=== PATIENT | female | born 1985 | race Caucasian/White ===

== ENCOUNTER 2016-05-27 13:58 | Emergency (ER) | payer OTHER ==
[~2016-05-27] VITALS: Ht 180.3 cm; Wt 122.5 kg
[~2016-05-27 13:58] MED LIST: NITR100C62 PO
[2016-05-27 14:36] VITALS: BP 148/93
[2016-05-27] MEDS ORDERED: IBUPROFEN 600 MG TABLET. PO ONE (15:30)
--- NOTE | 2016-05-27 16:07 | PHYS DOC ---
Past Medical History Past Medical History: No Pertinent History Past Surgical History: No Surgical History Additional Information: Nonsmoker Alcohol Use: Occasionally Drug Use: None Adult General Chief Complaint Chief Complaint: FEMALE UROGENTIAL PROBLEMS [facility] HPI Patient is a 30 year old female who presents with low abdominal cramping and right-sided low back pain for one week. She reports she has had some hematuria and a mild vaginal discharge with odor. She denies dysuria, urinary frequency, or fever. Patient was seen here 3 days ago for similar symptoms. She was diagnosed with a urinary tract infection and prescribed Macrobid. She states that her pain does not improve at all with the antibiotic. She reports having a Pap done 2 weeks ago, which seems to be just prior to the onset of her symptoms. She is sexually active in a stable, monogamous relationship. She has an IUD and therefore does not have menstrual cycles. She does not have a PCP. Review of Systems Review of Systems Constitutional: Denies fever or chills. [] GI: Denies \nausea, vomiting, bloody stools or diarrhea. Reports lower abdominal cramping. : Denies dysuria or urinary frequency. Reports hematuria and vaginal discharge. Musculoskeletal: Denies joint pain. Reports right-sided low back pain. Integument: Denies rash or skin lesions. [] Neurologic: Denies headache, focal weakness or sensory changes. [] Endocrine: Denies polyuria or polydipsia. [] All systems reviewed and negative unless otherwise stated in the HPI. Current Medications Current Medications Current Medications Medications (Trade) Dose Ordered Sig/[facility] Start Time Stop Time Status Last Admin Dose Admin Ibuprofen (Motrin) 600 mg 1X ONCE 05/27/16 15:30 05/27/16 15:32 DC 05/27/16 16:16 600 MG Allergies Allergies Allergies Coded Allergies Type Severity Reaction Last Updated Verified Penicillins Allergy Intermediate 08/01/13 Yes Physical Exam Physical Exam Constitutional: Well developed, well nourished, no acute distress, non-toxic appearance. [] HENT: Normocephalic, atraumatic, oropharynx moist. [] Eyes: PERRLA, EOMI, conjunctiva normal, no discharge. [] Neck: Normal range of motion, no tenderness, supple, no stridor. [] Cardiovascular: Heart rate regular rhythm, no murmur. [] Lungs & Thorax: Bilateral breath sounds clear to auscultation without wheezes, rales, or rhonchi. [] Abdomen: Bowel sounds normal, soft, suprapubic tenderness, no masses, no pulsatile masses. [] Female : ED RN business performance specialist present during exam. Normal external genitalia. There is mild white discharge within the vagina with scant amount of blood in the vaginal vault. IUD strings are visualized. There is no cervicitis or CMT. There is no adnexal mass or tenderness. Skin: Warm, dry, no erythema, no rash. [] Back: No midline tenderness, mild right CVA tenderness. [] Extremities: No tenderness, ROM intact, no edema. Distal pulses equal bilaterally. [] Neurologic: Alert and oriented X 3, normal motor function, normal sensory function, no focal deficits noted. [] Psychologic: Affect normal, judgement normal, mood normal. [] Current Patient Data Vital Signs Vital Signs Date Time Temp Pulse Resp B/P Pulse Ox O2 Delivery O2 Flow Rate FiO2 05/27/16 14:36 98.2 103 15 100 Room Air 98.2 Lab Values Laboratory Tests Test 05/27/16 14:35 05/27/16 14:46 Urine Collection Type Unknown Urine Color Yellow Urine Clarity Clear Urine pH 6.5 Urine Specific [place] 1.010 Urine Protein Negativemg/dL (NEG-TRACE) Urine Glucose (UA) Negativemg/dL (NEG) Urine Ketones (Stick) Negativemg/dL (NEG) Urine Blood Small (NEG) Urine Nitrite Negative (NEG) Urine Bilirubin Negative (NEG) Urine Urobilinogen Dipstick 0.2mg/dL (0.2 mg/dL) Urine Leukocyte Esterase Moderate (NEG) Urine RBC 1-2/HPF (0-2) Urine WBC 5-10/HPF (0-4) Urine Squamous Epithelial Cells Few/LPF Urine Bacteria Few/HPF (0-FEW) Urine Mucus Mod/LPF POC Urine HCG, Qualitative hcg negative (Negative) Microbiology 05/27/16 Wet Prep - Final, Complete WET PREP Final YEAST NONE SEEN TRICHOMONAS NONE SEEN CLUE CELLS CLUE CELLS PRESENT ALTERED SUKHI ALTERED SUKHI PRESENT SUGGESTIVE OF BACTERIAL VAGINOSIS WBCS MANY RBCS MANY EKG EKG [] Radiology/Procedures Radiology/Procedures [] Course & Med Decision Making Course & Med Decision Making Pertinent Labs and Imaging studies reviewed. (See chart for details) ED course: Patient presents with lower abdominal pain and right lower back pain with hematuria and vaginal discharge. On exam, she has suprapubic tenderness and right CVA tenderness. Pelvic exam reveals mild bleeding and discharge. The vaginal bleeding is likely the cause of the hematuria that the patient is reporting. Wet mount is positive for bacterial vaginosis. Urine still appears to be infected. Blood work was unable to be obtained after multiple attempts. I had a discussion with the patient regarding the urine and wet mount results. We did have an explanation for her pain other than a urinary tract infection. The patient agrees and is amenable to discontinuing attempts to obtain blood work. She is discharged home with prescription for Flagyl and Cipro. Return precautions were discussed. She verbalizes understanding and agrees with plan. Dragon Disclaimer Dragon Disclaimer This electronic medical record was generated, in whole or in part, using a voice recognition dictation system. Departure Departure Impression: Primary Impression: BV (bacterial vaginosis) Additional Impression: UTI (lower urinary tract infection) Disposition: 01 HOME, SELF-CARE Condition: IMPROVED Referrals: NO PCP (PCP) Patient Instructions: Bacterial Vaginosis, [id number], Urinary Tract Infection, [id number] Additional Instructions: Your urine is positive for infection. Your pelvic exam was also positive for bacterial vaginosis and mild bleeding. Please complete all of the prescribed antibiotics. You may discontinue the antibiotic prescribed at your last visit. Please follow-up with a primary care provider for recheck of your urine after completion of your antibiotics. Return to the emergency department if you have any other new or concerning symptoms. Scripts Ciprofloxacin Hcl (Cipro)500 Mg Tablet1 Tab PO BID 5 Days Prov:LUZ MARIA LÓPEZ 05/27/16 Metronidazole (Flagyl)500 Mg Tablet1 Tab PO BID #14 TAB Prov:LUZ MARIA LÓPEZ 05/27/16 Problem Qualifiers LUZ MARIA LÓPEZ May 27, 2016 16:07
[2016-05-27 16:31] LABS: BILIRUBIN,URINE NEGATIVE (NEG); GLUCOSE,URINE NEGATIVE (NEG); NITRITE,URINE NEGATIVE (NEG); PH,URINE 6.5; PROTEIN,URINE NEGATIVE (NEG-TRACE); UROBILINOGEN,URINE 0.2 mg/dL (0.2 mg/dL)
[2016-05-27 16:53] LABS: BACTERIA,URINE FEW /HPF (0-FEW); SQUAMOUS EPITHELIAL CELL,UR FEW /LPF
[2016-05-27] MEDS ORDERED: CIPR500T94 PO (17:06)
[2016-05-27] MEDS ORDERED: METR500T PO (17:06)
== END 2016-05-27 17:26 | disposition home or self-care (01) ==
LOC: ER 13:58
DX: N76.0 Acute vaginitis (principal); N39.0 Urinary tract infection, site not specified; Z88.0 Allergy status to penicillin
CPT/HCPCS: 81001; 81025; 87086; 87491; 87591; 99284; Q0111

== ENCOUNTER 2016-09-28 19:56 | Emergency (ER) | payer OTHER ==
[~2016-09-28] VITALS: Ht 180.3 cm; Wt 108.9 kg
[~2016-09-28 19:56] MED LIST changes: +CIPR500T94 PO; +METR500T PO
[2016-09-28 20:28] VITALS: BP 142/101
[2016-09-28] MEDS ORDERED: HYDR-971 PO (20:40)
[2016-09-28] MEDS ORDERED: NAPR500T PO (20:40)
[2016-09-28] MEDS ORDERED: CYCL10TA2 PO (20:40)
--- NOTE | 2016-09-28 20:40 | PHYS DOC ---
Past Medical History Past Medical History: No Pertinent History Past Surgical History: No Surgical History Alcohol Use: Occasionally Drug Use: None Adult General Chief Complaint Chief Complaint: LOWER BACK PAIN OR INJURY HPI HPI Patient is a 31 year old female who presents with moderate right low back pain radiating into the right lower extremity that began August 18, 2016 when she woke up. Patient denies any injury. Denies any numbness or tingling to bilateral lower extremities. Denies any loss of bowel bladder function. Review of Systems Review of Systems Constitutional: Denies fever or chills [] Eyes: Denies change in visual acuity, redness, or eye pain [] Musculoskeletal: back pain Integument: Denies rash or skin lesions [] Neurologic: Denies headache, focal weakness or sensory changes [] Endocrine: Denies polyuria or polydipsia [] Allergies Allergies Allergies Coded Allergies Type Severity Reaction Last Updated Verified Penicillins Allergy Intermediate 08/01/13 Yes Physical Exam Physical Exam Constitutional: Well developed, well nourished, no acute distress, non-toxic appearance. [] Abdomen: Bowel sounds normal, soft, no tenderness, no masses, no pulsatile masses. [] Skin: Warm, dry, no erythema, no rash. [] Back: Diffuse paraspinal muscle tenderness to the right lumbar spine, no midline lumbar tenderness, no CVA tenderness. Positive right leg straight raises. Extremities: No tenderness, no cyanosis, no clubbing, ROM intact, no edema. [] Neurologic: Alert and oriented X 3, normal motor function, normal sensory function, no focal deficits noted. [] Psychologic: Affect normal, judgement normal, mood normal. [] Current Patient Data Vital Signs Vital Signs Date Time Temp Pulse Resp B/P (MAP) Pulse Ox O2 Delivery O2 Flow Rate FiO2 09/28/16 20:28 98.0 100 18 99 Room Air 98.0 EKG EKG [] Radiology/Procedures Radiology/Procedures [] Course & Med Decision Making Course & Med Decision Making Pertinent Labs and Imaging studies reviewed. (See chart for details) Patient has right low back pain with sciatica. We provided her a primary care doctor for follow-up. She does not have cauda equina no syndrome. She was provided return precautions discharged in stable condition. Dragon Disclaimer Dragon Disclaimer This electronic medical record was generated, in whole or in part, using a voice recognition dictation system. Departure Departure Impression: Primary Impression: Low back pain Disposition: HOME, SELF-CARE Condition: STABLE Referrals: NO PCP (PCP) Follow-up with a doctor from the list provided in one week Patient Instructions: Back Pain, Adult, Sciatica with Rehab-SportsMed Additional Instructions: You were seen for low back pain radiating into the right lower extremity. We put you on medications to help with this pain. You can apply heat to the affected area, ice if you want to. Follow-up with a doctor from the list provided in the next 7 days. Avoid doing any strenuous activities especially heavy lifting for a week. Come back to the ED symptoms worsen especially if you develop any loss of bowel bladder function. Scripts Naproxen (NAPROSYN) 500 Mg Tablet 1 TAB PO BID, #60 TAB 2 Refills Prov: CHRISTOPHER DUMONT APRN 09/28/16 Cyclobenzaprine Hcl (CYCLOBENZAPRINE HCL) 10 Mg Tablet 1 TAB PO TID, #30 TAB Prov: CHRISTOPHER DUMONT APRN 09/28/16 Hydrocodone/Apap 5-325 (NORCO 5-325 TABLET) 1 Each Tablet 1-2 TAB PO Q4-6HRS, #12 TAB Prov: CHRISTOPHER DUMONT APRN 09/28/16 Problem Qualifiers Primary Impression: Low back pain Chronicity: acute Back pain laterality: right Sciatica presence: with sciatica Sciatica laterality: sciatica of right side Qualified Codes: M54.41 - Lumbago with sciatica, right side CHRISTOPHER DUMONT APRN Sep 28, 2016 20:40
== END 2016-09-28 20:38 | disposition home or self-care (01) ==
LOC: ER 19:56
DX: M54.41 Lumbago with sciatica, right side (principal); Z88.0 Allergy status to penicillin
CPT/HCPCS: 99283